=== PATIENT | female | born 1980 | race African-American/Black ===

== ENCOUNTER 2024-03-31 17:17 | Outpatient (REF) | payer OTHER, SELFPAY ==
[2024-03-31 17:40] LABS: INR 2.16; Prothrombin Time 21.2 sec (9.0-11.6)
== END 2024-03-31 17:18 | disposition home or self-care (01) ==
LOC: LAB 17:17
PROVIDERS: Visit Provider Internal Medicine
DX: Z79.01 Long term (current) use of anticoagulants (principal)
CPT/HCPCS: 36415; 85610